=== PATIENT | female | born 1945 | race Caucasian/White ===

== ENCOUNTER → 2023-07-24 14:09 | Outpatient (REF) | payer MEDICARE, SELFPAY | LOC: HWRAD 14:09 | PROVIDERS: ATTENDING PHYSICIAN Internal Medicine | DX: M81.0 Age-related osteoporosis without current pathological fracture (principal) | CPT/HCPCS: 77080 ==

== ENCOUNTER → 2023-09-07 09:30 | Outpatient (REF) | payer MEDICARE, SELFPAY | LOC: HWWDC 09:30 | PROVIDERS: ATTENDING PHYSICIAN Family Medicine | DX: Z12.31 Encounter for screening mammogram for malignant neoplasm of breast (principal) | CPT/HCPCS: 77063; 77067 ==

== ENCOUNTER → 2023-11-02 15:14 | Outpatient (REF) | payer MEDICARE, SELFPAY | LOC: MRI 3T 15:14 | PROVIDERS: ATTENDING PHYSICIAN Physical Medicine & Rehabilitation | DX: M54.16 Radiculopathy, lumbar region (principal) | CPT/HCPCS: 72148 ==

== ENCOUNTER → 2024-05-20 09:56 | Outpatient (REF) | payer OTHER, SELFPAY | LOC: HWRAD 09:56 | PROVIDERS: ATTENDING PHYSICIAN Family Medicine | DX: M54.2 Cervicalgia (principal) | CPT/HCPCS: 72050; 72072 ==

== ENCOUNTER → 2024-07-28 08:21 | Outpatient (REF) | payer MEDICARE, SELFPAY | LOC: RAD 08:21 | PROVIDERS: ATTENDING PHYSICIAN Internal Medicine Cardiovascular Disease; FAMILY PHYSICIAN Internal Medicine | DX: R09.89 Other specified symptoms and signs involving the circulatory and respiratory systems (principal) | CPT/HCPCS: 93880 ==

== ENCOUNTER 2024-08-18 06:36 | Day surgery (SDC) | payer MEDICARE, SELFPAY | END 2024-08-18 09:47 | disposition home or self-care (01) | LOC: GI 06:36 | PROVIDERS: ATTENDING PHYSICIAN Internal Medicine | DX: Z12.11 Encounter for screening for malignant neoplasm of colon (principal); D12.3 Benign neoplasm of transverse colon; K64.9 Unspecified hemorrhoids; Z80.0 Family history of malignant neoplasm of digestive organs | CPT/HCPCS: 45385; 88305 ==

== ENCOUNTER → 2024-09-27 14:05 | Outpatient (REF) | payer MEDICARE, SELFPAY | LOC: HWWDC 14:05 | PROVIDERS: ATTENDING PHYSICIAN Family Medicine | DX: Z12.31 Encounter for screening mammogram for malignant neoplasm of breast (principal) | CPT/HCPCS: 77063; 77067 ==

== ENCOUNTER → 2025-01-04 07:02 | Outpatient (REF) | payer MEDICARE, SELFPAY | LOC: MRI 3T 07:02 | PROVIDERS: ATTENDING PHYSICIAN Orthopaedic Surgery; FAMILY PHYSICIAN Nurse Practitioner Women's Health | DX: M25.512 Pain in left shoulder (principal) | CPT/HCPCS: 73221 ==